=== PATIENT | female | born 1955 | race Caucasian/White ===

== ENCOUNTER 2023-06-29 18:48 | Emergency (ER) | payer MEDICAID ==
[~2023-06-29] VITALS: Ht 162.6 cm; Wt 88.9 kg
[2023-06-29 19:10] VITALS: BP_SYST 132; PULSE 73; RESP 18; TEMP 97.7; O2SAT 96
[2023-06-29 21:25] VITALS: BP_SYST 138; PULSE 67; RESP 20; TEMP 98.2; O2SAT 97
== END 2023-06-29 21:25 | disposition home or self-care (01) ==
LOC: SED 18:48
DX: N95.1 Menopausal and female climacteric states (principal); R00.2 Palpitations; R51.9 Headache, unspecified; R35.89 Other polyuria; Z79.899 Other long term (current) drug therapy
CPT/HCPCS: 99281